=== PATIENT | male | born 1965 | race Two or more races ===

== ENCOUNTER 2024-08-09 10:47 | Emergency (ER) | payer OTHER, SELFPAY ==
[2024-08-09 10:48] VITALS: BMI 30.5
--- NOTE | 2024-08-09 10:48 | PC.NURSE ---
CALLED [facility] WHILE TRIAGING PT THIS RN NOTICED LEFT FACIAL DROOP WHEN PT WALKED INTO TRIAGE. RN ASKED CHARGE TO HAVE MD COME EVALUATE FOR POSSIBLE STROKE ALERT.
[2024-08-09 10:56] VITALS: BP 156/97; PULSE 70; RESP 18; TEMP 36.9; O2SAT 96
--- NOTE | 2024-08-09 11:05 | PC.NURSE ---
PT TAKEN TO CT.
--- NOTE | 2024-08-09 11:05 | PD.EDADULT ---
ED General RME/HPI General Chief complaint: Neuro Symptoms/Deficit Stated complaint: RIGHT FACIAL PARALYSIS Time Seen by Provider: 08/09/24 11:06 Arrival date/time: 08/09/24 10:47 Limitations: no limitations RME / HPI RME / HPI narrative: DR. PEREZ MAIN ED EVALUATION: 59 year old male presents to the Emergency Department with complaints of right sided facial weakness and minimal right sided droop. He states that 2 days ago, he had a left sided toothache. Then, yesterday started with a diffuse headache. And this morning at 8 AM, he began having his right sided facial weakness. Last well known time was 8 AM today. Blood glucose here was 98. Right hand dominant. PMHx: Denies any PMHx, surgeries, daily medications, or known allergies. Family history is significant for diabetes. Social Hx: No tobacco, alcohol, or substance use. Related Data Previous Rx's ?Medication ?Instructions ?Recorded acyclovir 800 mg tablet 800 mg PO QID bells palsy #28 tabs 08/09/24 prednisone 20 mg tablet See Taper PO QDAY allergic 08/09/24 reaction #18 tabs Allergies Allergy/AdvReac Type Severity Reaction Status Date / Time No Known Allergies Allergy Verified 08/09/24 10:52 Review of Systems Review of Systems Systems Reviewed: All systems reviewed, normal except as documented Past Medical History Social History SMOKING STATUS: Never smoker SUBSTANCE USE: does not use ALCOHOL: Never ED Exam General Limitations: Present no limitations General appearance: Present alert and in no apparent distress Head Head exam: Present atraumatic, normocephalic and normal inspection Eye Eye exam: Present normal appearance, PERRL and EOMI ENT ENT exam: Present normal exam, normal oropharynx and mucous membranes moist Neck Neck exam: Present normal inspection, full ROM and trachea midline Chest Chest inspection: Present normal inspection and symmetric chest wall rise Respiratory Respiratory exam: Present normal lung sounds bilaterally Cardiovascular Cardiovascular exam: Present regular rate, normal rhythm and normal heart sounds Abdominal Exam Abdominal exam: Present soft and normal bowel sounds Extremities Exam Extremities exam: Present normal inspection and full ROM Back Exam Back exam: Present normal inspection and full ROM Neurological Exam Neurological exam: Present alert, oriented X3 and other (Right hand dominant. 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 Care 08/09/24 11:07 Active Continuous Pulse Oximetry NOW Care 08/09/24 11:07 Completed EKG (ED ONLY) *Do not use* NOW Care 08/09/24 11:07 Completed Insert IV NOW Care 08/09/24 11:07 Active NIH Stroke Scale now Care 08/09/24 11:07 Active NPO NOW Care 08/09/24 11:07 Active Nurse Swallow Screen x1 Care 08/09/24 11:07 Active Consult to Neurology / Tele-Neurology Routine Cons 08/09/24 11:[address] angio stroke protocol Stat Exams 08/09/24 11:[address] stroke protocol Stat Exams 08/09/24 11:07 Completed EKG (ED Only) Stat Exams 08/09/24 11:07 Draft Alcohol, Blood Medical Stat Lab 08/09/24 11:15 Completed CBC Stat Lab 08/09/24 11:15 Completed Comprehensive Metabolic Panel Stat Lab 08/09/24 11:15 Completed Drug Screen,Urine Stat Lab 08/09/24 11:44 Completed Magnesium Stat Lab 08/09/24 11:15 Completed Partial Thromboplastin Time Stat Lab 08/09/24 11:15 Completed Prothrombin Time with INR Stat Lab 08/09/24 11:15 Completed Troponin I Stat Lab 08/09/24 11:15 Completed Urinalysis Stat Lab 08/09/24 11:43 Completed Acyclovir [Zovirax] Med 08/09/24 13:19 Discontinued 800 mg PO X1 ONE MethylPREDNISolone. [SoluMEDROL Inj] Med 08/09/24 13:19 Discontinued 60 mg IVP X1 ONE Ondansetron Inj [Zofran Inj] Med 08/09/24 11:06 Active 4 mg IVP Q4HR PRN Vital Signs Vital signs: Vital Signs Temperature 98.4 F 08/09/24 10:56 Pulse Rate 70 08/09/24 10:56 Respiratory Rate 18 08/09/24 10:56 Blood Pressure 156/97 H 08/09/24 10:56 Pulse Oximetry (%) 96 08/09/24 10:56 Oxygen Delivery Method Room Air 08/09/24 10:56 Discharge Plan Plan Patient Disposition: HOME (Self Care) Patient condition on transfer: Stable Prescriptions/Referrals Prescriptions/Med Rec: New acyclovir 800 mg tablet 800 mg PO QID MDD 4 Qty: 28 0RF prednisone 20 mg tablet See Taper PO QDAY MDD 3 Qty: 18 0RF Taper: Prednisone Taper 20 mg DAILY for 9 Days and 0 Hour Rx Instructions: Take 3 Tabs q Day for 3 days then take 2 tabs q Day for 3 days then take 1 tablet q Day for 3 days then D/C Referrals: No Primary/Family,Physician [Primary Care Provider] - In 1 week Problem List Clinical Impression: Right-sided Springer's palsy Patient/Caregiver Discharge Instructions Education Materials: ED Springer's Palsy Additional Instructions: Tape your right eye at night, use saline eye drops 4-5 times a day on your right eye. Please follow-up with your primary care physician within 2-3 days. Return to the Emergency Department as needed. Print Language: Pashto Stand Alone Forms: [employer] Award Info., Work/School Release, Patient Portal Info Letter MDM Narrative MDM hospital course: I, Rosie Carver, am scribing for and in the presence of Dr. Perez. Discussed with teleneurologist and we think the patient has right-sided Springer's palsy. Plan to discharge. Gave the patient instructions to tape his eye at night, use saline eye drops 4-5 times a day on his right eye, and follow up with PCP in 2-3 days. Clinical Information Provided by patient Medical Records Reviewed None (no previous visits) Meds/Rx Considered, not Ordered None Labs/Rad/Tests considered, not Ordered None Chronic Illness/Social Conditions Add or document further as needed: Denies any PMHx, surgeries, daily medications, or known allergies. EKG EKG Interpretation narrative: My interpretation: EKG performed at 1132 hours, sinus rhythm, rate 67, no acute changes, NC interval 152ms, QRS duration 87 ms, QT/QTc 368/390, P-R-T axis 42, 8, 32 Lab Interpretation Labs: see narrative above Imaging Imaging interpretation: see narrative above Radiology reports / interpretation(s): Procedure(s): CT stroke protocol Accession Number(s): [id number] cc: Alireza Perez MD; Julius Solis MD~ Examination: CT brain head without contrast. 2-D sagittal coronal reconstructions Date and time of exam: 11:10 AM Indications: Stroke alert, onset left-sided body numbness focal neurologic deficit today CTDI: vol (mGy):50.2 DLP: (mGycm):1023 Technique: Multiple CT axial sections of the brain have been obtained, 5 mm slice thickness. Contrast has not been administered. 2-D sagittal, coronal reconstructions have been obtained Low dose protocols were performed. One or more of the following dose reduction techniques were used; automated exposure control, adjustment of the mA and/or KV according to patient size, use of iterative reconstruction technique. Findings: No significant ventricular enlargement. Intra-axial or extra-axial hemorrhage density is not seen. No mass effect or midline shift Basal cisterns are not remarkable. Fourth ventricle is midline. Cranial vault intact. Impression: Negative for acute hemorrhage, mass effect or midline shift Dictated By: Julius Solis MD Procedure(s): CT angio stroke protocol Accession Number(s): [id number] cc: Alireza Perez MD; Julius Solis MD; NO PRIMARY/FAMILY,PHYSICIAN~ Examination: CTA carotids with intravenous contrast CTA brain, head with intravenous contrast. 2-D sagittal, coronal reconstructions. 3-D reconstructions. Exam date and time: 2024 1116 hrs. Indications: Stroke alert, onset focal neurologic deficit today CTDI: vol (mGy) 47.2 DLP: (mGycm) 521 Technique: Multiple CTA axial brain, head carotid images post intravenous contrast injection 75 cc, [id number]. 2-D sagittal, coronal reconstructions. 3-D reconstructions, 3-D post processing including vascular maximum intensity projection images. Low dose protocols were performed. One or more of the following dose reduction techniques were used; automated exposure control, adjustment of the mA and/or KV according to patient size, use of iterative reconstruction technique. Findings: No significant neck common carotid carotid bifurcation or internal carotid artery stenoses Dominant right vertebral artery in the neck with no critical stenoses No cerebral large vessel arterial occlusions or thrombus Impression: No significant neck arterial stenoses No cerebral large vessel arterial occlusions or thrombus Dictated By: Julius Solis MD Medication Administration(s) Medication Administration History Ondansetron HCl (Ondansetron Inj 2 Mg/Ml Inj 2 Ml) 4 mg IVP Q4HR PRN PRN Reason: NAUSEA OR VOMITING Stop: 09/08/24 11:05 Discontinued Medications Acyclovir (Acyclovir 800 Mg Tablet) 800 mg PO X1 ONE Stop: 08/09/24 13:20 Methylprednisolone Sodium Succinate (Methylprednisolone Sod Succ 40 Mg Vial) 60 mg IVP X1 ONE Stop: 08/09/24 13:20 Diagnosis Differential diagnosis: TIA, CVA, Springer's palsy Most likely dx, and/or detailed dx discussion: Right-sided Springer's palsy Dispositon Disposition: Discharge Home
--- NOTE | 2024-08-09 11:07 | EKG_ITS ---
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
[2024-08-09 11:28] LABS: Basophils % (Auto) 0 % (0-2.5); Eosinophils # (Auto) 0.1 Thou/mm3 (0.0-0.5); Eosinophils % (Auto) 2 % (0-10); Hematocrit 44.6 % (41.0-53.0); Hemoglobin 16.1 g/dL (13.5-16.0); Immature Granulocytes % (Auto) 0 % (0-0); Immature Granulocytes Auto 0.03 Thou/mm3 (0.00-0.00); Lymphocytes # (Auto) 1.4 Thou/mm3 (1.0-4.8); Lymphocytes % (Auto) 20 % (10-50); Mean Corpuscular HGB Conc 36.1 g/dl (31.0-37.0); Mean Corpuscular Hemoglobin 29.8 pg (25.0-35.0); Mean Corpuscular Volume 83 fL (80-100); Monocytes # (Auto) 0.6 Thou/mm3 (0.0-0.8); Monocytes % (Auto) 8 % (0-12); Neutrophils % (Auto) 70 % (37-80); Nucleated Red Blood Cell % 0 /100 WBC (0); Platelet Count 149 Thou/mm3 (140-440); RDW Standard Deviation 40.9 fL (35.1-43.9); White Blood Count 7.2 Thou/mm3 (3.8-10.6)
[2024-08-09 11:35] VITALS: PULSE 67
--- NOTE | 2024-08-09 11:42 | PD.TNEURO ---
Tele Neuro Consultation Consultation Date 08/09/24 Most Recent Vital Signs Last Vital Signs Temp 98.4 F 08/09/24 10:56 Pulse 67 08/09/24 11:35 Resp 18 08/09/24 10:56 BP 156/97 H 08/09/24 10:56 Pulse Ox 96 08/09/24 10:56 O2 Del Method Room Air 08/09/24 10:56 Consultation Narrative [facility] Patient Name:???Lenin Quintero Date of :???1965 Date of Service:???08/09/2024 11:03:44 Diagnosis:?G51.0 - Springer palsy Impression: ?Right Facial Paresis (Suspected Springer's Palsy): ? - Right face numbness, pain, paresis in frontalis, orbicularis oculi, orbicularis raymond, buccinator consistent with Springer's palsy, with low suspicion for CVA. ? ?Recommend artificial tears and lubricant to protect the cornea from exposure keratitis. ?Keep eyelids at night closed for further protection. ?Patient complaining of right sided tenderness/pain however, unable to appreciate any erythema or vesicles/rash. Consider starting the valacyclovir 1 g TID for one week. ?Also consider prednisone 60 mg daily for one week. ? ? - Patient education: Return if symptoms worsen, particularly if right-sided weakness develops ? - MRI considered but unavailable ? ?Headache: ? - Monitor headache, which is atypical for Springer's palsy ? - Consider further evaluation if headache persists or worsens ? ?Follow-up: ? - Not specified in the original text Sign Out: ? Discussed with Emergency Department Provider Advanced Imaging: Advanced Imaging Deferred because: Non-disabling symptoms as verified by the patient; no cortical signs so not consistent with LVO Stroke not suspected with clinical presentation and exam Metrics: Last Known Well: 08/08/2024 22:00:00 Dispatch Time: 08/09/2024 11:03:44 Arrival Time: 08/09/2024 11:05:00 Initial Response Time: 08/09/2024 11:06:04Symptoms: right face weakness. Initial patient interaction: 08/09/2024 11:07:22 NIHSS Assessment Completed: 08/09/2024 11:11:59Patient is not a candidate for Thrombolytic. Thrombolytic Medical Decision: 08/09/2024 11:12:17Patient was not deemed candidate for Thrombolytic because of following reasons: LKW outside 4.5 hr window. . other diagnosis suspected Springer's Palsy.. CT Head: I personally reviewed all the CT images that were available to me and it showed: no actue findings Primary Provider Notified of Diagnostic Impression and Management Plan on: 08/09/2024 11:42:07 History of Present Illness:Patient is a 59 year old Male. Patient was brought by private transportation with symptoms of right face weakness. Patient presents with right facial paresis that began this AM upon waking. The patient reports experiencing pressure-like pain on the right side of his face, which he rates as 7 out of 10 in severity. He also mentions having blurry vision yesterday. He is currently taking Ibuprofen for headache/pressure pain. The facial weakness appears to be affecting his ability to raise his eyebrows symmetrically and blow out his cheeks. The patient does not report any issues with arm or leg strength. He denies any changes in hearing or taste, and reports no sharp or stabbing pain in the right ear or right side of the face. Past Medical History: ?There is no history of Hypertension Medications: No Anticoagulant use? No Antiplatelet use Reviewed EMR for current medications Allergies:? Reviewed Social History: Drug Use: No Family History: There is no family history of premature cerebrovascular disease pertinent to this consultation ROS : 14 Points Review of Systems was performed and was negative except mentioned in HPI. Past Surgical History: There Is No Surgical History Contributory To Today?s Visit Examination: BP(156/97),?Pulse(68),?Blood Glucose(98) 1A: Level of Consciousness - Alert; keenly responsive?+ 0 1B: Ask Month and Age - Both Questions Right?+ 0 1C: Blink Eyes & Squeeze Hands - Performs Both Tasks?+ 0 2: Test Horizontal Extraocular Movements - Normal?+ 0 3: Test Visual Moses - No Visual Loss?+ 0 4: Test Facial Palsy (Use Grimace if Obtunded) - Unilateral Complete paralysis (upper/lower face)?+ 3 5A: Test Left Arm Motor Drift - No Drift for 10 Seconds?+ 0 5B: Test Right Arm Motor Drift - No Drift for 10 Seconds?+ 0 6A: Test Left Leg Motor Drift - No Drift for 5 Seconds?+ 0 6B: Test Right Leg Motor Drift - No Drift for 5 Seconds?+ 0 7: Test Limb Ataxia (FNF/Heel-White) - No Ataxia?+ 0 8: Test Sensation - Normal; No sensory loss?+ 0 9: Test Language/Aphasia - Normal; No aphasia?+ 0 10: Test Dysarthria - Normal?+ 0 11: Test Extinction/Inattention - No abnormality?+ 0 NIHSS Score:?3 Pre-Morbid Modified Linwood Scale:0 Points = No symptoms at all Spoke with :?Dr. Elder This consult was conducted in real time using interactive audio and video technology. Patient was informed of the technology being used for this visit and agreed to proceed. Patient located in hospital and provider located at home/office setting. Patient is being evaluated for possible acute neurologic impairment and high probability of imminent or life-threatening deterioration. I spent total of 35 minutes providing care to this patient, including time for face to face visit via telemedicine, review of medical records, imaging studies and discussion of findings with providers, the patient and/or family. Dr Meño Macias [facility] For Inpatient follow-up with [facility] physician please call [facility] at . As we are not an outpatient service for any post hospital discharge needs please contact the hospital for assistance. If you have any questions for the [facility] physicians or need to reconsult for clinical or diagnostic changes please contact us via [facility] at .
[2024-08-09 11:43] LABS: Partial Thromboplastin Time 24.7 Seconds (22.0-36.0); Prothrombin Time 10.8 Seconds (9.0-12.2)
[2024-08-09 11:47] LABS: Alanine Aminotransferase 54 U/L (10-49); Albumin, Serum 4.6 gm/dL (3.5-5.0); Albumin/Globulin Ratio 1.8 (1.2-2.2); Alcohol, Blood Medical < 3.0 mg/dL (0-10.0); Alkaline Phosphatase 93 U/L (46-116); Anion Gap 7 (7-16); Aspartate Amino Transferase 25 U/L (0-34); BUN/Creatinine Ratio 10 Ratio (12-20); Bilirubin,Total 1.7 mg/dL (0.3-1.2); Blood Urea Nitrogen 13 mg/dL (9-23); Calcium 9.5 mg/dL (8.3-10.6); Calcium (Corrected) 9.5 mg/dL (8.5-10.1); Carbon Dioxide 27.9 mMol/L (20.0-31.0); Chloride 110 mMol/L (98-107); Creatinine (Component) 1.3 mg/dL (0.6-1.3); Estimated Creatinine Clearance 66.5 mL/min (>60); Globulin 2.5 gm/dL (2.3-3.5); Glucose 117 mg/dL (74-106); Magnesium 2.3 mg/dL (1.6-2.6); Osmolality,Calculated 289 (275-295); Potassium 3.8 mMol/L (3.4-5.1); Sodium 145 mMol/L (136-145); Total Protein 7.1 gm/dL (5.7-8.2); Troponin I < 0.020 ng/mL (0.0-0.045); eGFR > 60 See Note
[2024-08-09 12:09] LABS: Collection Type, Urine Clean Catch; Squamous Epithelial Cell,Urine 0 /hpf (0-5)
[2024-08-09 12:24] LABS: Bilirubin,Urine Negative (Negative); Blood,Urine Negative (Negative); Clarity,Urine Clear (Clear/Hazy); Color,Urine Lt-Yellow (Lt Yel-Yel); Glucose, Urine Negative (Negative); Ketones,Urine Negative (Negative); Leukocyte Esterase,Urine Negative (Negative); Nitrite,Urine Negative (Negative); Protein,Urine Negative (Neg - Trace); RBC,Urine 1 /hpf (0-3); Specific Gravity,Urine 1.022 (1.001-1.035); Urobilinogen,Urine Negative mg/dL (0.0-1.0); WBC,Urine 1 /hpf (0-5)
[2024-08-09 12:31] LABS: Amphetamine/Methamp Scrn,U Negative (Negative); Barbiturate Screen,Urine Negative (Negative); Benzodiazepines Screen,Urine Negative (Negative); Benzoylecgonine Screen, Ur Negative (Negative); Fentanyl Screen,Urine Negative (Negative); Opiate Screen,Urine Negative (Negative); THC Screen,Urine Negative (Negative)
[2024-08-09] MEDS: ACYCLOVIR 800 MG TABLET PO (14:07)
[2024-08-09 14:21] VITALS: BP 164/95; PULSE 68; RESP 17; TEMP 36.9; O2SAT 98
== END 2024-08-09 14:24 | disposition home or self-care (01) ==
PROVIDERS: Emergency Provider Family Medicine
DX: G51.0 Bell's palsy (principal)
CPT/HCPCS: 36415; 70450; 70496; 70498; 80053; 80307; 80320; 81001; 83735; 84484; 85025; 85610; 85730; 93005; 96374; 99285; A4649; J2919; Q9967; A9270; G0480